=== PATIENT | female | born 1950 | race Caucasian/White ===

== ENCOUNTER 2018-01-31 07:29 | Outpatient (CLI) | payer OTHER ==
[~2018-01-31 07:29] MED LIST: SYNTHROID100 MCG; TRICOR48 MG; VYTORIN 10-20 M1 TAB; ZESTRIL5 MG
== END 2018-01-31 15:35 | disposition home or self-care (01) ==
LOC: SONOGRAMA 07:29
DX: R10.11 Right upper quadrant pain (principal)

== ENCOUNTER 2018-05-24 11:16 | Outpatient (CLI) | payer OTHER | END 2018-05-24 14:09 | disposition home or self-care (01) | LOC: NUCLEAR 11:16 | DX: I67.89 Other cerebrovascular disease (principal); E78.00 Pure hypercholesterolemia, unspecified; I10 Essential (primary) hypertension; R42 Dizziness and giddiness ==

== ENCOUNTER 2018-06-26 07:39 | Outpatient (CLI) | payer OTHER | END 2018-06-26 08:03 | disposition home or self-care (01) | LOC: NUCLEAR 07:39 | DX: R06.09 Other forms of dyspnea (principal); G47.33 Obstructive sleep apnea (adult) (pediatric); E78.00 Pure hypercholesterolemia, unspecified; I10 Essential (primary) hypertension; R94.31 Abnormal electrocardiogram [ECG] [EKG] | CPT/HCPCS: 78452; 93017; 93306; A9500 ==

== ENCOUNTER 2018-06-27 07:32 | Outpatient (CLI) | payer OTHER | END 2018-06-27 07:38 | disposition home or self-care (01) | LOC: LAB 07:32 | DX: I10 Essential (primary) hypertension (principal); G47.33 Obstructive sleep apnea (adult) (pediatric); E78.2 Mixed hyperlipidemia; R06.09 Other forms of dyspnea ==

== ENCOUNTER 2018-07-26 11:20 | Emergency (ER) | payer OTHER ==
[~2018-07-26] VITALS: Ht 165.1 cm; Wt 95.3 kg
[2018-07-26] MEDS ORDERED: TOPROL XL25 M1 PO (11:28)
[2018-07-26] MEDS ORDERED: PLAVIX75 MG PO (11:28)
[2018-07-26] MEDS ORDERED: ISOSORBIDE DINI30 MG PO (11:29)
[2018-07-26] MEDS ORDERED: ASPIRIN81 MG PO (11:29)
[2018-07-26] MEDS ORDERED: ZESTRIL10 M1 PO (11:30)
== END 2018-07-26 14:22 | disposition home or self-care (01) ==
LOC: ER 11:20
DX: I87.2 Venous insufficiency (chronic) (peripheral) (principal); M79.605 Pain in left leg

== ENCOUNTER 2018-08-23 16:23 | Outpatient (CLI) | payer OTHER ==
[~2018-08-23 16:23] MED LIST changes: +ASPIRIN81 MG PO; +ISOSORBIDE DINI30 MG PO; +PLAVIX75 MG PO; +TOPROL XL25 M1 PO; +ZESTRIL10 M1 PO
== END 2018-08-23 16:32 | disposition home or self-care (01) ==
LOC: LAB 16:23
DX: J32.8 Other chronic sinusitis (principal)

== ENCOUNTER → 2018-09-20 | Outpatient (CLI) | payer OTHER | END | disposition home or self-care (01) | LOC: MAMO-SONO 08:50 | DX: Z12.31 Encounter for screening mammogram for malignant neoplasm of breast (principal); Z87.898 Personal history of other specified conditions; N63.10 Unspecified lump in the right breast, unspecified quadrant; N63.20 Unspecified lump in the left breast, unspecified quadrant ==

== ENCOUNTER → 2018-09-28 | Outpatient (CLI) | payer OTHER | END | disposition home or self-care (01) | LOC: TOM 09:21 | DX: J32.8 Other chronic sinusitis (principal) ==

== ENCOUNTER 2019-04-04 11:46 | Outpatient (CLI) | payer OTHER | END 2019-04-04 11:48 | disposition home or self-care (01) | LOC: RAD 11:46 | DX: J30.1 Allergic rhinitis due to pollen (principal); J01.91 Acute recurrent sinusitis, unspecified; J45.31 Mild persistent asthma with (acute) exacerbation; G47.33 Obstructive sleep apnea (adult) (pediatric); E66.01 Morbid (severe) obesity due to excess calories; R06.02 Shortness of breath ==

== ENCOUNTER 2020-05-27 17:50 | Emergency (ER) | payer OTHER ==
[~2020-05-27] VITALS: Ht 154.9 cm; Wt 90.7 kg
== END 2020-05-27 22:43 | disposition home or self-care (01) ==
LOC: ER 17:50
DX: K57.90 Diverticulosis of intestine, part unspecified, without perforation or abscess without bleeding (principal); K42.9 Umbilical hernia without obstruction or gangrene; R10.31 Right lower quadrant pain

== ENCOUNTER 2020-08-26 11:05 | Outpatient (CLI) | payer OTHER | END 2020-08-26 18:00 | disposition home or self-care (01) | LOC: PPH VACUNA 11:05 | PROVIDERS: ATTEND Emergency Medicine Pediatric Emergency Medicine | DX: Z23 Encounter for immunization (principal) ==

== ENCOUNTER 2021-04-14 10:30 | Outpatient (CLI) | payer OTHER ==
[2021-04-15] MEDS ORDERED: LUMIGAN2.5 M1 OP (12:47)
[2021-04-15] MEDS ORDERED: VYTORIN 10-201 EACH (12:47)
== END 2021-04-14 19:00 | disposition home or self-care (01) ==
LOC: EKG 10:30
PROVIDERS: ATTEND Orthopaedic Surgery
DX: I10 Essential (primary) hypertension (principal)

== ENCOUNTER 2021-04-16 09:55 | Inpatient (IN) | payer OTHER ==
[~2021-04-16] VITALS: Ht 152.4 cm; Wt 86.2 kg
[~2021-04-16 09:55] MED LIST changes: +LUMIGAN2.5 M1 OP; +VYTORIN 10-201 EACH
[2021-04-20] MEDS ORDERED: MONTELUKAST SOD10 MG (07:50)
[2021-04-20] MEDS ORDERED: ISOSORBIDE MONO30 M2 (07:50)
[2021-04-20] MEDS ORDERED: SERTRALINE HCL50 MG (07:50)
== END 2021-04-22 17:46 | DRG 470 ==
LOC: O/R 04-20 06:00 → SURG 04-20 06:00 → SURH 04-20 07:00 → SURG 04-20 12:35
PROVIDERS: ADMIT Orthopaedic Surgery; ATTEND Orthopaedic Surgery
PROC: 0SRD0J9 Replacement of Left Knee Joint with Synthetic Substitute, Cemented, Open Approach (ICD-10-PCS; principal; 2021-04-20 07:00)
DX: M17.12 Unilateral primary osteoarthritis, left knee (principal); I10 Essential (primary) hypertension

== ENCOUNTER → 2021-04-16 10:05 | Outpatient (CLI) | payer OTHER ==
[~2021-04-16 10:05] MED LIST changes: +ISOSORBIDE MONO30 M2; +MONTELUKAST SOD10 MG; +SERTRALINE HCL50 MG
== END | disposition home or self-care (01) ==
LOC: RAD 10:05
PROVIDERS: ATTEND Physical Medicine & Rehabilitation
DX: M17.12 Unilateral primary osteoarthritis, left knee (principal)

== ENCOUNTER 2025-06-05 08:10 | Outpatient (CLI) | payer OTHER | END 2025-06-05 08:12 | disposition home or self-care (01) | LOC: TOM 08:10 | PROVIDERS: ATTEND Surgery | DX: K43.0 Incisional hernia with obstruction, without gangrene (principal); K59.09 Other constipation; R10.13 Epigastric pain ==